=== PATIENT | female | born 1965 | race Caucasian/White ===

== ENCOUNTER 2021-05-06 23:53 | Emergency (ER) | payer OTHER ==
[~2021-05-06] VITALS: Ht 167.6 cm; Wt 134.7 kg
[2021-05-07] MEDS ORDERED: OMEPRAZOLE40 MG PO (00:19)
[2021-05-07] MEDS ORDERED: FUROSEMIDE 20 M20 MG PO (00:19)
[2021-05-07] MEDS ORDERED: KLOR-CON M2020 MEQ PO (00:20)
[2021-05-07] MEDS ORDERED: SINGULAIR 10 MG10 MG PO (00:21)
[2021-05-07] MEDS ORDERED: BREO ELLIPTA 11 EACH IH (00:21)
[2021-05-07 01:35] VITALS: BP 111/66
== END 2021-05-07 01:35 | disposition home or self-care (01) ==
LOC: M.ERS 23:53
DX: S31.41XA Laceration without foreign body of vagina and vulva, initial encounter (principal); Z88.1 Allergy status to other antibiotic agents; Z88.8 Allergy status to other drugs, medicaments and biological substances; W45.0XXA Nail entering through skin, initial encounter; Y93.89 Activity, other specified; Y92.89 Other specified places as the place of occurrence of the external cause; Y99.8 Other external cause status